=== PATIENT | female | born 1950 | race Caucasian/White ===

== ENCOUNTER 2018-05-23 09:36 | Observation (INO) | payer MEDICARE, MEDICAID ==
[2018-05-23] MEDS: CEFAZOLIN 2 GM/50 ML (PMX) 50 ML (FOR WT < 120 KG) IVPB (06:00)
[2018-05-23] MEDS: TRANEXAMIC ACID 1GM/100ML(PMX) 100 ML AT INCISION X1 IVPB (06:00)
[2018-05-23] MEDS: TRANEXAMIC ACID 1GM/100ML(PMX) 100 ML AT CLOSURE X1 IVPB (06:00)
[2018-05-23] MEDS: LACTATED RINGER'S 1,000 ML IV ×2 (06:00→16:45)
[~2018-05-23 09:36] MED LIST: DESFLURANE 15 MIN; GLYCOPYRROLATE 0.4 MG INJ; NEOSTIGMINE 3 MG/3 ML SYRINGE
[2018-05-23 10:31] LABS: ADD MAN DIFF? NO
[2018-05-23] MEDS: DEXAMETHASONE 4 MG/ML 1 ML INJ IV (10:35)
[2018-05-23 10:37] LABS: WHITE BLOOD COUNT 7.9 10^3/ul (4.8-10.8)
[2018-05-23 10:37] LABS: BASOPHIL # 0.1 10^3/ul (0.0-0.1); BASOPHILS % 0.8 % (0.0-2.0); EOSINOPHILS # 0.3 10^3/ul (0.0-0.5); HEMATOCRIT 38.7 % (37.0-47.0); HEMOGLOBIN 12.5 g/dl (12.0-16.0); LYMPHOCYTES # 1.9 10^3/ul (0.8-2.9); LYMPHOCYTES % 24.3 % (15.0-51.0); MEAN CORPUSCULAR HEMOGLOBIN 25.4 pg (29.0-33.0); MEAN CORPUSCULAR HGB CONC 32.3 g/dl (32.0-37.0); MEAN CORPUSCULAR VOLUME 78.7 fl (82.0-101.0); MEAN PLATELET VOLUME 11.2 fl (7.4-10.4); MONOCYTE # 0.6 10^3/ul (0.3-0.9); MONOCYTES % 7.2 % (0.0-11.0); NEUTROPHILS % 63.3 % (39.0-77.0); PLATELET COUNT 230 10^3/UL (140-415); RED BLOOD COUNT 4.92 10^6/ul (4.20-5.40); RED CELL DISTRIBUTION WIDTH 13.5 % (11.5-14.5)
[2018-05-23] MEDS: ACETAMINOPHEN 1000MG/100ML IV 100 ML IVPB (10:46)
[2018-05-23 10:53] LABS: INR 0.92; PROTIME 12.5 Sec (11.9-14.9)
[2018-05-23 10:54] LABS: PARTIAL THROMBOPLASTIN TIME 27.7 Sec (23.0-35.0)
[2018-05-23] MEDS ORDERED: TRANEXAMIC ACID 1GM/100ML(PMX) 200 ML (13:44)
[2018-05-23] MEDS ORDERED: morphine SULFATE/PF (10 MG/10 ML) INJ (14:10)
[2018-05-23] MEDS ORDERED: MIDAZOLAM 1 MG/ML 2 ML INJ (14:11)
[2018-05-23] MEDS: BACITRACIN 50000 UNITS INJ (15:07)
[2018-05-23] MEDS: POLYMYXIN B 500000 UNIT INJ (15:08)
[2018-05-23] MEDS ORDERED: PROPOFOL 20 ML (16:08)
[2018-05-23] MEDS ORDERED: CEFAZOLIN 1 GM INJ (16:08)
[2018-05-23] MEDS ORDERED: ROPIVACAINE 0.5 % 30 ML VIAL (16:08)
[2018-05-23] MEDS ORDERED: SUCCINYLCHOLINE CHLORIDE 100 MG/5 ML SYG IV (16:08)
[2018-05-23] MEDS ORDERED: ROCURONIUM 50 MG INJ (16:08)
[2018-05-23] MEDS ORDERED: LIDOCAINE 100 MG SYRINGE (16:08)
[2018-05-23] MEDS ORDERED: NACL 0.9% 3 ML SYG IV (16:30)
[2018-05-23] MEDS ORDERED: NALOXONE (0.4 MG/ML) INJ IV (16:30)
[2018-05-23] MEDS ORDERED: MAGNESIUM HYDROXIDE 30ML CUP PO (16:30)
[2018-05-23] MEDS ORDERED: KETOROLAC 15 MG INJ IV (16:30)
[2018-05-23] MEDS: CEFAZOLIN 2 GM/50 ML (PMX) 50 ML IVPB (16:56)
[2018-05-23] MEDS ORDERED: hydrALAzine 20 MG INJ IV (18:00)
[2018-05-23 20:32] LABS: ADD UMIC YES; UR ASCORBIC ACID NEGATIVE (NEGATIVE); UR BACTERIA FEW /HPF (NONE SEEN); UR BILIRUBIN (Dip) NEGATIVE (NEGATIVE); UR BLOOD (Dip) 1+ mg/dL (NEGATIVE); UR CLARITY SLIGHTLY CLOUDY (CLEAR); UR COLOR STRAW (YELLOW); UR GLUCOSE (Dip) NEGATIVE (NEGATIVE); UR KETONES (Dip) NEGATIVE (NEGATIVE); UR LEUKOCYTE ESTERASE (Dip) NEGATIVE Leu/ul (NEGATIVE); UR NITRITE (Dip) POSITIVE (NEGATIVE); UR RBC 2 /HPF (0-5); UR SPECIFIC GRAVITY (Dip) 1.013 (1.003-1.030); UR SQUAMOUS EPITHELIAL CELL FEW /HPF (FEW); UR TOTAL PROTEIN (Dip) NEGATIVE (NEGATIVE); UR UROBILINOGEN (Dip) NEGATIVE (NEGATIVE); UR WBC 2 /HPF (0-5)
[2018-05-23] MEDS: GABAPENTIN 100 MG CAP PO (21:08)
[2018-05-24] MEDS: CEFAZOLIN 2 GM/50 ML (PMX) 50 ML IVPB ×2 (01:49→08:17)
[2018-05-24] MEDS: LACTATED RINGER'S 1,000 ML IV (04:55)
[2018-05-24 05:37] LABS: ADD MAN DIFF? NO
[2018-05-24 05:41] LABS: BASOPHILS % 0.2 % (0.0-2.0); EOSINOPHILS % 0.1 % (0.0-7.0); LYMPHOCYTES # 1.5 10^3/ul (0.8-2.9); LYMPHOCYTES % 10.2 % (15.0-51.0); MEAN CORPUSCULAR HEMOGLOBIN 25.1 pg (29.0-33.0); MEAN CORPUSCULAR HGB CONC 31.4 g/dl (32.0-37.0); MEAN CORPUSCULAR VOLUME 79.7 fl (82.0-101.0); MONOCYTE # 1.1 10^3/ul (0.3-0.9); MONOCYTES % 7.5 % (0.0-11.0); NEUTROPHIL # 12.2 10^3/ul (1.6-7.5); NEUTROPHILS % 81.5 % (39.0-77.0); PLATELET COUNT 210 10^3/UL (140-415); RED BLOOD COUNT 4.39 10^6/ul (4.20-5.40); RED CELL DISTRIBUTION WIDTH 14.1 % (11.5-14.5)
[2018-05-24 06:13] LABS: ANION GAP 8 (5-13); BLOOD UREA NITROGEN 12 mg/dl (7-20); CALCIUM 8.8 mg/dl (8.4-10.2); CARBON DIOXIDE 26 mmol/L (21-31); CHLORIDE 108 mmol/L (97-110); CREATININE 0.55 mg/dl (0.44-1.00); Estimated GFR > 60 mL/min (>60); GLUCOSE 114 mg/dl (70-220); POTASSIUM 3.9 mmol/L (3.5-5.1); SODIUM 142 mmol/L (135-144)
[2018-05-24] MEDS: AMLODIPINE 5 MG TAB PO (08:18)
[2018-05-24] MEDS: DOCUSATE SODIUM 100 MG CAP PO ×2 (08:18→21:58)
[2018-05-24] MEDS: CELECOXIB 100 MG CAP PO ×2 (08:19→21:58)
[2018-05-24] MEDS: ASPIRIN (EC) 81 MG TAB PO ×2 (08:19→21:59)
[2018-05-24] MEDS: GABAPENTIN 100 MG CAP PO ×3 (08:19→21:58)
[2018-05-24] MEDS: oxyCODONE 5 MG TAB PO ×2 (14:20→21:58)
[2018-05-24] MEDS ORDERED: ONDANSETRON 4 MG INJ IV (16:30)
[2018-05-25 05:18] LABS: ADD MAN DIFF? NO
[2018-05-25 05:19] LABS: WHITE BLOOD COUNT 12.5 10^3/ul (4.8-10.8)
[2018-05-25 05:19] LABS: BASOPHIL # 0.1 10^3/ul (0.0-0.1); BASOPHILS % 0.4 % (0.0-2.0); EOSINOPHILS # 0.3 10^3/ul (0.0-0.5); EOSINOPHILS % 2.2 % (0.0-7.0); HEMATOCRIT 34.8 % (37.0-47.0); HEMOGLOBIN 10.9 g/dl (12.0-16.0); LYMPHOCYTES # 2.3 10^3/ul (0.8-2.9); LYMPHOCYTES % 18.5 % (15.0-51.0); MEAN CORPUSCULAR HEMOGLOBIN 24.6 pg (29.0-33.0); MEAN CORPUSCULAR HGB CONC 31.3 g/dl (32.0-37.0); MEAN CORPUSCULAR VOLUME 78.6 fl (82.0-101.0); MEAN PLATELET VOLUME 11.5 fl (7.4-10.4); MONOCYTE # 1.1 10^3/ul (0.3-0.9); MONOCYTES % 8.7 % (0.0-11.0); NEUTROPHIL # 8.7 10^3/ul (1.6-7.5); NEUTROPHILS % 69.9 % (39.0-77.0); PLATELET COUNT 170 10^3/UL (140-415); RED BLOOD COUNT 4.43 10^6/ul (4.20-5.40); RED CELL DISTRIBUTION WIDTH 13.9 % (11.5-14.5)
[2018-05-25 05:49] LABS: ANION GAP 7 (5-13); BLOOD UREA NITROGEN 15 mg/dl (7-20); CALCIUM 8.8 mg/dl (8.4-10.2); CARBON DIOXIDE 31 mmol/L (21-31); CHLORIDE 100 mmol/L (97-110); CREATININE 0.71 mg/dl (0.44-1.00); Estimated GFR > 60 mL/min (>60); GLUCOSE 102 mg/dl (70-220); POTASSIUM 4.3 mmol/L (3.5-5.1); SODIUM 138 mmol/L (135-144)
[2018-05-25] MEDS: PANTOPRAZOLE (EC) 40 MG TAB PO (05:52)
[2018-05-25] MEDS: CELECOXIB 100 MG CAP PO ×2 (09:14→21:09)
[2018-05-25] MEDS: DOCUSATE SODIUM 100 MG CAP PO ×2 (09:14→21:04)
[2018-05-25] MEDS: ASPIRIN (EC) 81 MG TAB PO ×2 (09:14→21:04)
[2018-05-25] MEDS: AMLODIPINE 5 MG TAB PO (09:14)
[2018-05-25] MEDS: GABAPENTIN 100 MG CAP PO ×3 (09:14→21:04)
[2018-05-25] MEDS: oxyCODONE 5 MG TAB PO (09:18)
[2018-05-26 05:15] LABS: ADD MAN DIFF? NO
[2018-05-26 05:27] LABS: BASOPHIL # 0.1 10^3/ul (0.0-0.1); BASOPHILS % 0.4 % (0.0-2.0); EOSINOPHILS # 0.3 10^3/ul (0.0-0.5); HEMATOCRIT 31.5 % (37.0-47.0); HEMOGLOBIN 10.1 g/dl (12.0-16.0); LYMPHOCYTES # 2.6 10^3/ul (0.8-2.9); MEAN CORPUSCULAR HEMOGLOBIN 25.1 pg (29.0-33.0); MEAN CORPUSCULAR HGB CONC 32.1 g/dl (32.0-37.0); MEAN CORPUSCULAR VOLUME 78.2 fl (82.0-101.0); MEAN PLATELET VOLUME 12.4 fl (7.4-10.4); MONOCYTE # 1.1 10^3/ul (0.3-0.9); MONOCYTES % 9.8 % (0.0-11.0); NEUTROPHIL # 7.2 10^3/ul (1.6-7.5); NEUTROPHILS % 63.4 % (39.0-77.0); PLATELET COUNT 159 10^3/UL (140-415); RED BLOOD COUNT 4.03 10^6/ul (4.20-5.40); RED CELL DISTRIBUTION WIDTH 13.7 % (11.5-14.5)
[2018-05-26 05:27] LABS: WHITE BLOOD COUNT 11.4 10^3/ul (4.8-10.8)
[2018-05-26] MEDS: PANTOPRAZOLE (EC) 40 MG TAB PO (05:52)
[2018-05-26 07:13] LABS: ANION GAP 6 (5-13); BLOOD UREA NITROGEN 16 mg/dl (7-20); CALCIUM 8.4 mg/dl (8.4-10.2); CARBON DIOXIDE 28 mmol/L (21-31); CHLORIDE 105 mmol/L (97-110); CREATININE 0.69 mg/dl (0.44-1.00); Estimated GFR > 60 mL/min (>60); GLUCOSE 101 mg/dl (70-220); POTASSIUM 3.7 mmol/L (3.5-5.1); SODIUM 139 mmol/L (135-144)
[2018-05-26] MEDS: GABAPENTIN 100 MG CAP PO ×2 (09:10→13:26)
[2018-05-26] MEDS: DOCUSATE SODIUM 100 MG CAP PO (09:10)
[2018-05-26] MEDS: CELECOXIB 100 MG CAP PO (09:10)
[2018-05-26] MEDS: AMLODIPINE 5 MG TAB PO (09:11)
[2018-05-26] MEDS: ASPIRIN (EC) 81 MG TAB PO (09:11)
[2018-05-26] MEDS: ACETAMINOPHEN 500 MG TAB PO (09:13)
[2018-05-26] MEDS: oxyCODONE 5 MG TAB PO (09:18)
== END 2018-05-26 17:25 | disposition home health service (06) ==
LOC: REC 09:36 → MS1 18:10
PROVIDERS: Orthopaedic Surgery
DX: M17.12 Unilateral primary osteoarthritis, left knee (principal); I10 Essential (primary) hypertension
CPT/HCPCS: 27447; 73560; 80048; 81001; 85025; 85610; 85730; 86850; 86900; 86901; 87081; 88304; 88311; 97110; 97116; 97161; 97530; 99217